=== PATIENT | male | born 1975 | race Caucasian/White ===

== ENCOUNTER 2018-05-26 15:40 | Inpatient (IN) | payer OTHER ==
[~2018-05-26] VITALS: Ht 175.3 cm; Wt 108.2 kg
[2018-05-26 15:45] VITALS: Ht 175.3 cm; Wt 108.2 kg
[2018-05-26 16:48] LABS: BASOPHIL % 0.9 % (0-2); RED CELL DISTRIBUTION WIDTH 13.3 % (11.5-14.5)
[2018-05-26 16:53] LABS: PLATELET COUNT 91 x10^3mcL (130-400)
[2018-05-26 17:12] LABS: CALCIUM 8.4 mg/dL (8.5-10.1); CHLORIDE SERUM 91 mmol/L (98-107); CREATININE SERUM 0.8 mg/dL (0.7-1.3); GFR1 > 60 mL/min; GLUCOSE SERUM 356 mg/dL (74-106); POTASSIUM SERUM 3.2 mmol/L (3.5-5.1); SODIUM SERUM 130 mmol/L (136-145)
[2018-05-26 17:17] LABS: ALBUMIN 3.9 g/dL (3.4-5.0); ALKALINE PHOSPHATASE 142 U/L (46-116); BILIRUBIN TOTAL 1.5 mg/dL (0.20-1.00)
[2018-05-26 17:18] LABS: TOTAL PROTEIN, SERUM 8.5 g/dL (6.4-8.2)
[2018-05-26 17:24] LABS: microscopic required? YES; urine erythrocyte 3+ (NEGATIVE)
[2018-05-26 17:37] LABS: ALT/SGPT 160 U/L (16-63); AST/SGOT 227 U/L (15-37)
[2018-05-26 20:04] LABS: AMPHETAMINE QUAL UR NONE DETECTED (See below)
[2018-05-26 20:09] LABS: AMYLASE 30 U/L (25-115); CHOLESTEROL 330 mg/dL (<200); HDL CHOLESTEROL 30 mg/dL (40-60); LIPASE 439 IU/L (73-393); PHOSPHOROUS 3.5 mg/dL (2.5-4.9); TRIGLYCERIDES 1775 mg/dL (<150)
[2018-05-26 20:11] LABS: FREE T4 0.8 ng/dL (0.76-1.46); FREE THYROXINE INDEX 2.4 ug/dL (1.4-4.5); T3 TOTAL 1.01 ng/mL; T4(THYROXINE) 7.1 ug/dL (4.7-13.3)
[2018-05-26 20:27] VITALS: BP 159/91
[2018-05-26 22:16] VITALS: BP 144/83
[2018-05-26 23:35] VITALS: BP 144/93
[2018-05-27 05:41] VITALS: BP 149/92
[2018-05-27 06:01] LABS: BASOPHIL % 0.7 % (0-2); RED CELL DISTRIBUTION WIDTH 13.4 % (11.5-14.5)
[2018-05-27 06:29] LABS: CALCIUM 7.2 mg/dL (8.5-10.1); CARBON DIOXIDE 23.1 mmol/L (21-32); CHLORIDE SERUM 98 mmol/L (98-107); CREATININE SERUM 0.6 mg/dL (0.7-1.3); GFR1 > 60 mL/min; GLUCOSE SERUM 186 mg/dL (74-106); MAGNESIUM 1.8 mg/dL (1.8-2.4); PHOSPHOROUS 3.1 mg/dL (2.5-4.9); POTASSIUM SERUM 3.1 mmol/L (3.5-5.1); SODIUM SERUM 139 mmol/L (136-145)
[2018-05-27 07:09] LABS: PLATELET COUNT 71 x10^3mcL (130-400)
[2018-05-27 09:37] LABS: ALBUMIN 3.5 g/dL (3.4-5.0); BILIRUBIN DIRECT 1.2 mg/dL (0.0-0.2); TOTAL PROTEIN, SERUM 7.5 g/dL (6.4-8.2)
[2018-05-27 11:03] VITALS: BP 161/104
[2018-05-27 14:04] VITALS: BP 160/108
[2018-05-27 17:07] VITALS: BP 136/89
[2018-05-27 21:04] VITALS: BP 123/84
[2018-05-28 05:34] VITALS: BP 142/93
[2018-05-28 06:20] LABS: BASOPHIL % 0.4 % (0-2); RED CELL DISTRIBUTION WIDTH 13.6 % (11.5-14.5)
[2018-05-28 06:41] LABS: PLATELET COUNT 72 x10^3mcL (130-400)
[2018-05-28 06:43] LABS: ALKALINE PHOSPHATASE 122 U/L (46-116); ALT/SGPT 167 U/L (16-63); AST/SGOT 248 U/L (15-37); BILIRUBIN DIRECT 2.34 mg/dL (0.0-0.2); BILIRUBIN TOTAL 3.5 mg/dL (0.20-1.00); CALCIUM 8.7 mg/dL (8.5-10.1); CARBON DIOXIDE 26.5 mmol/L (21-32); CHLORIDE SERUM 96 mmol/L (98-107); CREATININE SERUM 0.7 mg/dL (0.7-1.3); GFR1 > 60 mL/min; GLUCOSE SERUM 257 mg/dL (74-106); PHOSPHOROUS 2.3 mg/dL (2.5-4.9); POTASSIUM SERUM 3.4 mmol/L (3.5-5.1); SODIUM SERUM 130 mmol/L (136-145); TOTAL PROTEIN, SERUM 7.3 g/dL (6.4-8.2)
[2018-05-28 07:07] LABS: ALBUMIN 3.2 g/dL (3.4-5.0)
[2018-05-28 08:51] VITALS: BP 142/96
[2018-05-28 12:43] VITALS: BP 144/94
[2018-05-28 17:52] VITALS: BP 141/87
[2018-05-28 20:50] VITALS: BP 139/100
[2018-05-29 05:48] VITALS: BP 139/99
[2018-05-29 06:26] LABS: CALCIUM 8.7 mg/dL (8.5-10.1); CARBON DIOXIDE 24.9 mmol/L (21-32); CHLORIDE SERUM 103 mmol/L (98-107); CREATININE SERUM 0.6 mg/dL (0.7-1.3); GFR1 > 60 mL/min; GLUCOSE SERUM 201 mg/dL (74-106); MAGNESIUM 1.8 mg/dL (1.8-2.4); PHOSPHOROUS 3.2 mg/dL (2.5-4.9); POTASSIUM SERUM 3.5 mmol/L (3.5-5.1); SODIUM SERUM 141 mmol/L (136-145)
[2018-05-29 06:29] LABS: BASOPHIL % 0.7 % (0-2)
[2018-05-29 06:44] LABS: PLATELET COUNT 84 x10^3mcL (130-400)
[2018-05-29 09:05] VITALS: BP 140/93
[2018-05-29] MEDS ORDERED: METFORMIN HCL1000 MG PO (09:25)
[2018-05-29 12:13] VITALS: BP 140/93
[2018-05-29] MEDS ORDERED: LEVEMIR100 U/M1 SC (13:08)
[2018-05-29] MEDS ORDERED: HUMULIN R100 U/1 M1 SC (13:08)
[2018-05-29] MEDS ORDERED: ADA30 PO (13:09)
[2018-05-29] MEDS ORDERED: BG FS (13:09)
[2018-05-29] MEDS ORDERED: LIPI10 PO (13:54)
[2018-05-29] MEDS ORDERED: NEU100 PO (13:55)
[2018-05-29] MEDS ORDERED: ZES5 PO (13:55)
== END 2018-05-29 16:00 | disposition home or self-care (01) | DRG 52 ==
LOC: ED 15:40 → DU 19:34
PROVIDERS: Emergency Medicine; Internal Medicine
DX: G92 Toxic encephalopathy (principal); N17.0 Acute kidney failure with tubular necrosis; E83.51 Hypocalcemia; E87.1 Hypo-osmolality and hyponatremia; D69.6 Thrombocytopenia, unspecified; E11.65 Type 2 diabetes mellitus with hyperglycemia; E78.5 Hyperlipidemia, unspecified; E03.9 Hypothyroidism, unspecified; R74.0 Nonspecific elevation of levels of transaminase and lactic acid dehydrogenase [LDH]; F32.9 Major depressive disorder, single episode, unspecified; F10.129 Alcohol abuse with intoxication, unspecified; Y90.9 Presence of alcohol in blood, level not specified; I10 Essential (primary) hypertension; E87.6 Hypokalemia; F12.10 Cannabis abuse, uncomplicated; Z68.35 Body mass index [BMI] 35.0-35.9, adult; Y92.018 Other place in single-family (private) house as the place of occurrence of the external cause; Z56.0 Unemployment, unspecified; Z71.41 Alcohol abuse counseling and surveillance of alcoholic
CPT/HCPCS: 82962; 83880; 84439; 87046; 87046-59; G0480; J1815; J2060; J2405; J3411; J3475; J3490; J7030; Q0092

== ENCOUNTER 2018-07-29 22:48 | Emergency (ER) | payer OTHER ==
[~2018-07-29] VITALS: Ht 172.7 cm; Wt 101.6 kg
[~2018-07-29 22:48] MED LIST: ADA30 PO; BG FS; HUMULIN R100 U/1 M1 SC; LEVEMIR100 U/M1 SC; LIPI10 PO; METFORMIN HCL1000 MG PO; NEU100 PO; ZES5 PO
[2018-07-29 22:52] VITALS: BP 131/50; Ht 172.7 cm; Wt 101.6 kg
== END 2018-07-30 01:19 | disposition left against medical advice (07) ==
LOC: ED 22:48
DX: Z53.21 Procedure and treatment not carried out due to patient leaving prior to being seen by health care provider (principal)
CPT/HCPCS: 82962

== ENCOUNTER 2018-07-31 15:44 | Inpatient (IN) | payer OTHER ==
[~2018-07-31] VITALS: Ht 175.3 cm; Wt 108.9 kg
[2018-07-31 15:52] VITALS: Ht 175.3 cm; Wt 108.9 kg
[2018-07-31 16:41] LABS: CALCIUM 8.4 mg/dL (8.5-10.1); CARBON DIOXIDE 26.4 mmol/L (21-32); CHLORIDE SERUM 96 mmol/L (98-107); CREATININE SERUM 0.9 mg/dL (0.7-1.3); GFR1 > 60 mL/min; GLUCOSE SERUM 137 mg/dL (74-106); POTASSIUM SERUM 3.5 mmol/L (3.5-5.1); SODIUM SERUM 137 mmol/L (136-145)
[2018-07-31 16:46] LABS: BASOPHIL % 0.9 % (0-2); RED CELL DISTRIBUTION WIDTH 14.5 % (11.5-14.5)
[2018-07-31 16:50] LABS: PLATELET COUNT 114 x10^3mcL (130-400)
[2018-07-31 16:59] LABS: ALBUMIN 4.5 g/dL (3.4-5.0); ALKALINE PHOSPHATASE 147 U/L (46-116); ALT/SGPT 165 U/L (16-63); AST/SGOT 197 U/L (15-37); BILIRUBIN TOTAL 1.03 mg/dL (0.20-1.00); LIPASE 432 IU/L (73-393)
[2018-07-31 17:02] LABS: CHOLESTEROL 447 mg/dL (<200); CHOLESTEROL/HDL RATIO 5.8; HDL CHOLESTEROL 77 mg/dL (40-60); TOTAL PROTEIN, SERUM 9.7 g/dL (6.4-8.2); TRIGLYCERIDES 408 mg/dL (<150)
[2018-07-31 19:22] VITALS: BP 149/95
[2018-07-31 21:34] VITALS: BP 133/91
[2018-08-01 05:52] VITALS: BP 141/94
[2018-08-01 06:58] LABS: BASOPHIL % 0.9 % (0-2)
[2018-08-01 07:13] LABS: CARBON DIOXIDE 27.8 mmol/L (21-32); CHLORIDE SERUM 98 mmol/L (98-107); CREATININE SERUM 0.8 mg/dL (0.7-1.3); GFR1 > 60 mL/min; GLUCOSE SERUM 90 mg/dL (74-106); POTASSIUM SERUM 3.6 mmol/L (3.5-5.1); SODIUM SERUM 135 mmol/L (136-145)
[2018-08-01 08:06] VITALS: BP 152/108
[2018-08-01 09:01] LABS: PLATELET COUNT 73 x10^3mcL (130-400); RED CELL DISTRIBUTION WIDTH 14.6 % (11.5-14.5)
[2018-08-01 12:53] VITALS: BP 142/63; BP 155/84
[2018-08-01 17:18] VITALS: BP 139/90
[2018-08-01 21:05] VITALS: BP 126/85
[2018-08-02 06:49] VITALS: BP 114/69
[2018-08-02 07:29] LABS: BASOPHIL % 0.4 % (0-2)
[2018-08-02 07:30] LABS: PLATELET COUNT 66 x10^3mcL (130-400); RED CELL DISTRIBUTION WIDTH 14.7 % (11.5-14.5)
[2018-08-02 07:32] LABS: AMYLASE 39 U/L (25-115); CALCIUM 8.9 mg/dL (8.5-10.1); CARBON DIOXIDE 28.3 mmol/L (21-32); CHLORIDE SERUM 96 mmol/L (98-107); CREATININE SERUM 0.8 mg/dL (0.7-1.3); GFR1 > 60 mL/min; GLUCOSE SERUM 86 mg/dL (74-106); LIPASE 457 IU/L (73-393); SODIUM SERUM 136 mmol/L (136-145)
[2018-08-02 10:42] VITALS: BP 124/85
[2018-08-02 14:37] VITALS: BP 132/92
[2018-08-02 17:28] VITALS: BP 97/65
== END 2018-08-02 17:51 | disposition home or self-care (01) | DRG 282 ==
LOC: ED 15:44 → DU 17:28 → MU 17:28 → DU 08-01 03:10
PROVIDERS: Specialist; ADMIT Family Medicine
DX: K85.90 Acute pancreatitis without necrosis or infection, unspecified (principal); G92 Toxic encephalopathy; M62.82 Rhabdomyolysis; E11.65 Type 2 diabetes mellitus with hyperglycemia; E87.1 Hypo-osmolality and hyponatremia; E03.9 Hypothyroidism, unspecified; F41.9 Anxiety disorder, unspecified; R74.0 Nonspecific elevation of levels of transaminase and lactic acid dehydrogenase [LDH]; F10.229 Alcohol dependence with intoxication, unspecified; I10 Essential (primary) hypertension; F17.210 Nicotine dependence, cigarettes, uncomplicated; E78.5 Hyperlipidemia, unspecified; F10.239 Alcohol dependence with withdrawal, unspecified; Y90.2 Blood alcohol level of 40-59 mg/100 ml; Z79.4 Long term (current) use of insulin; Z79.899 Other long term (current) drug therapy; Z56.0 Unemployment, unspecified; Z68.35 Body mass index [BMI] 35.0-35.9, adult; Z71.41 Alcohol abuse counseling and surveillance of alcoholic
CPT/HCPCS: 82962; 83880; G0480; J2060; J2405; J3411; J3475; J3490; J7030; Q0092

== ENCOUNTER 2019-09-20 18:06 | Emergency (ER) | payer OTHER ==
[~2019-09-20] VITALS: Ht 167.6 cm; Wt 104.3 kg
[2019-09-20 18:16] VITALS: Ht 167.6 cm; Wt 104.3 kg
[2019-09-20 20:01] LABS: BASOPHIL % 1.1 % (0-2); PLATELET COUNT 120 x10^3mcL (130-400); RED CELL DISTRIBUTION WIDTH 13.8 % (11.5-14.5)
[2019-09-20 20:10] LABS: CHLORIDE SERUM 102 mmol/L (98-107); CREATININE SERUM 0.9 mg/dL (0.7-1.3); GFR1 > 60 mL/min; GLUCOSE SERUM 145 mg/dL (74-106); POTASSIUM SERUM 3.4 mmol/L (3.5-5.1); SODIUM SERUM 142 mmol/L (136-145)
[2019-09-20 20:16] LABS: ALBUMIN 3.9 g/dL (3.4-5.0); ALKALINE PHOSPHATASE 113 U/L (46-116); ALT/SGPT 97 U/L (16-63); AST/SGOT 134 U/L (15-37); BILIRUBIN TOTAL 0.8 mg/dL (0.20-1.00); LIPASE 416 IU/L (73-393); MAGNESIUM 2.1 mg/dL (1.8-2.4); TOTAL PROTEIN, SERUM 8.1 g/dL (6.4-8.2)
[2019-09-20 20:51] VITALS: BP 120/83
== END 2019-09-20 21:48 | disposition left against medical advice (07) ==
LOC: ED 18:06
PROVIDERS: Emergency Medicine
DX: K85.20 Alcohol induced acute pancreatitis without necrosis or infection (principal); M62.82 Rhabdomyolysis; E03.9 Hypothyroidism, unspecified; S00.31XA Abrasion of nose, initial encounter; X58.XXXA Exposure to other specified factors, initial encounter; Y93.89 Activity, other specified; Y92.89 Other specified places as the place of occurrence of the external cause; Y99.8 Other external cause status
CPT/HCPCS: G0480; J2060; J3490

== ENCOUNTER 2019-09-21 10:26 | Emergency (ER) | payer OTHER ==
[~2019-09-21] VITALS: Ht 172.7 cm; Wt 101.2 kg
[2019-09-21 10:34] VITALS: Ht 172.7 cm; Wt 101.2 kg
[2019-09-21 11:20] LABS: BASOPHIL % 0.7 % (0-2); RED CELL DISTRIBUTION WIDTH 14.2 % (11.5-14.5)
[2019-09-21 11:22] LABS: PLATELET COUNT 117 x10^3mcL (130-400)
[2019-09-21 11:35] LABS: CALCIUM 8.6 mg/dL (8.5-10.1); CARBON DIOXIDE 26.3 mmol/L (21-32); CHLORIDE SERUM 101 mmol/L (98-107); CREATININE SERUM 0.9 mg/dL (0.7-1.3); GFR1 > 60 mL/min; GLUCOSE SERUM 159 mg/dL (74-106); POTASSIUM SERUM 3.4 mmol/L (3.5-5.1); SODIUM SERUM 141 mmol/L (136-145)
[2019-09-21 11:41] LABS: ALBUMIN 4.2 g/dL (3.4-5.0); ALKALINE PHOSPHATASE 125 U/L (46-116); ALT/SGPT 103 U/L (16-63); AST/SGOT 172 U/L (15-37); BILIRUBIN TOTAL 0.87 mg/dL (0.20-1.00)
[2019-09-21 11:43] LABS: TOTAL PROTEIN, SERUM 8.5 g/dL (6.4-8.2)
[2019-09-21 14:21] LABS: microscopic required? YES; urine erythrocyte 2+ (NEGATIVE)
[2019-09-21 14:36] LABS: AMPHETAMINE QUAL UR NONE DETECTED (See below)
[2019-09-21 19:07] VITALS: BP 135/76
== END 2019-09-21 19:07 | disposition home or self-care (01) ==
LOC: ED 10:26
PROVIDERS: Emergency Medicine
DX: F10.129 Alcohol abuse with intoxication, unspecified (principal); E11.9 Type 2 diabetes mellitus without complications
CPT/HCPCS: G0480; J2060; J7030; Q0092

== ENCOUNTER 2019-09-22 08:30 | Inpatient (IN) | payer OTHER ==
[~2019-09-22] VITALS: Ht 175.3 cm; Wt 104.0 kg
[2019-09-22 10:48] LABS: CALCIUM 8.5 mg/dL (8.5-10.1); CARBON DIOXIDE 23.6 mmol/L (21-32); CHLORIDE SERUM 94 mmol/L (98-107); CREATININE SERUM 0.7 mg/dL (0.7-1.3); GFR1 > 60 mL/min; GLUCOSE SERUM 108 mg/dL (74-106); POTASSIUM SERUM 3.7 mmol/L (3.5-5.1); SODIUM SERUM 134 mmol/L (136-145)
[2019-09-22 10:55] LABS: ALBUMIN 4.1 g/dL (3.4-5.0); ALKALINE PHOSPHATASE 121 U/L (46-116); ALT/SGPT 117 U/L (16-63); AST/SGOT 224 U/L (15-37); BILIRUBIN TOTAL 1.6 mg/dL (0.20-1.00)
[2019-09-22 10:56] LABS: TOTAL PROTEIN, SERUM 8.3 g/dL (6.4-8.2)
[2019-09-22 10:59] LABS: BASOPHIL % 0.5 % (0-2); RED CELL DISTRIBUTION WIDTH 14.2 % (11.5-14.5)
[2019-09-22 11:18] LABS: PLATELET COUNT 95 x10^3mcL (130-400)
[2019-09-22 13:08] LABS: MAGNESIUM 1.9 mg/dL (1.8-2.4); PHOSPHOROUS 3.2 mg/dL (2.5-4.9)
[2019-09-22 13:10] LABS: T3 TOTAL 1.01 ng/mL
[2019-09-22 13:11] LABS: CHOLESTEROL/HDL RATIO 3.7
[2019-09-22 13:14] LABS: AMPHETAMINE QUAL UR NONE DETECTED (See below)
[2019-09-22 13:19] LABS: FREE T4 0.81 ng/dL (0.76-1.46); T4(THYROXINE) 6.5 ug/dL (4.7-13.3)
[2019-09-22 13:23] LABS: microscopic required? YES; urine erythrocyte TRACE (NEGATIVE)
[2019-09-22 13:52] VITALS: BP 144/62
[2019-09-22 13:55] VITALS: Ht 175.3 cm; Wt 104.0 kg
[2019-09-22 16:50] VITALS: BP 138/93
[2019-09-22 20:25] VITALS: BP 141/90
[2019-09-23 05:34] VITALS: BP 123/78
[2019-09-23 06:06] LABS: BASOPHIL % 0.6 % (0-2); RED CELL DISTRIBUTION WIDTH 14.1 % (11.5-14.5)
[2019-09-23 06:09] LABS: PLATELET COUNT 91 x10^3mcL (130-400)
[2019-09-23 06:52] LABS: CALCIUM 8.4 mg/dL (8.5-10.1); CHLORIDE SERUM 94 mmol/L (98-107); CREATININE SERUM 0.7 mg/dL (0.7-1.3); GFR1 > 60 mL/min; GLUCOSE SERUM 118 mg/dL (74-106); MAGNESIUM 2.1 mg/dL (1.8-2.4); PHOSPHOROUS 3.1 mg/dL (2.5-4.9); POTASSIUM SERUM 3.3 mmol/L (3.5-5.1); SODIUM SERUM 133 mmol/L (136-145)
[2019-09-23 07:37] VITALS: BP 135/89
[2019-09-23 12:37] VITALS: BP 120/70
[2019-09-23 16:46] VITALS: BP 121/73
[2019-09-23 20:05] VITALS: BP 100/62
[2019-09-24 05:33] VITALS: BP 118/71
[2019-09-24 06:50] LABS: BASOPHIL % 0.6 % (0-2); RED CELL DISTRIBUTION WIDTH 14.4 % (11.5-14.5)
[2019-09-24 06:56] LABS: PLATELET COUNT 85 x10^3mcL (130-400)
[2019-09-24 07:23] LABS: CALCIUM 8.6 mg/dL (8.5-10.1); CARBON DIOXIDE 28.5 mmol/L (21-32); CHLORIDE SERUM 101 mmol/L (98-107); CREATININE SERUM 0.8 mg/dL (0.7-1.3); GFR1 > 60 mL/min; GLUCOSE SERUM 114 mg/dL (74-106); MAGNESIUM 2.2 mg/dL (1.8-2.4); PHOSPHOROUS 3.5 mg/dL (2.5-4.9); POTASSIUM SERUM 3.5 mmol/L (3.5-5.1); SODIUM SERUM 139 mmol/L (136-145)
[2019-09-24 07:28] VITALS: BP 134/87
[2019-09-24 07:53] LABS: ALBUMIN 3.5 g/dL (3.4-5.0); ALKALINE PHOSPHATASE 110 U/L (46-116); ALT/SGPT 93 U/L (16-63); AST/SGOT 117 U/L (15-37); BILIRUBIN DIRECT 0.44 mg/dL (0.0-0.2); BILIRUBIN TOTAL 1.4 mg/dL (0.20-1.00); TOTAL PROTEIN, SERUM 7.5 g/dL (6.4-8.2)
[2019-09-24] MEDS ORDERED: FOL1 PO (08:16)
[2019-09-24] MEDS ORDERED: THI100 PO (08:16)
[2019-09-24] MEDS ORDERED: THERA-M CAPLET1 EACH PO (08:16)
[2019-09-24 11:37] VITALS: BP 139/91
[2019-09-24 12:26] VITALS: BP 139/91
== END 2019-09-24 12:56 | disposition home or self-care (01) | DRG 422 ==
LOC: ED 08:30 → DU 12:04
PROVIDERS: Emergency Medicine; ADMIT Internal Medicine
DX: E86.0 Dehydration (principal); D69.6 Thrombocytopenia, unspecified; E78.5 Hyperlipidemia, unspecified; E03.9 Hypothyroidism, unspecified; I10 Essential (primary) hypertension; F17.210 Nicotine dependence, cigarettes, uncomplicated; R74.0 Nonspecific elevation of levels of transaminase and lactic acid dehydrogenase [LDH]; E11.65 Type 2 diabetes mellitus with hyperglycemia; E78.00 Pure hypercholesterolemia, unspecified; G47.00 Insomnia, unspecified; F10.239 Alcohol dependence with withdrawal, unspecified; F12.90 Cannabis use, unspecified, uncomplicated; F10.229 Alcohol dependence with intoxication, unspecified; W01.0XXA Fall on same level from slipping, tripping and stumbling without subsequent striking against object, initial encounter; Y93.01 Activity, walking, marching and hiking; Y90.0 Blood alcohol level of less than 20 mg/100 ml; Z79.899 Other long term (current) drug therapy; Y92.89 Other specified places as the place of occurrence of the external cause; Y99.8 Other external cause status; Z79.4 Long term (current) use of insulin; Z71.41 Alcohol abuse counseling and surveillance of alcoholic
CPT/HCPCS: 82962; 83880; 84439; 97116-GP; 97530-GP; C9113; G0378; G0480; J2060; J7030; Q0092

== ENCOUNTER 2019-11-17 08:37 | Emergency (ER) | payer OTHER ==
[~2019-11-17] VITALS: Ht 175.3 cm; Wt 110.2 kg
[~2019-11-17 08:37] MED LIST changes: +FOL1 PO; +THERA-M CAPLET1 EACH PO; +THI100 PO
[2019-11-17 08:43] VITALS: Ht 175.3 cm; Wt 110.2 kg
[2019-11-17 10:50] VITALS: BP 153/96
== END 2019-11-17 10:55 | disposition home or self-care (01) ==
LOC: ED 08:37
DX: M75.32 Calcific tendinitis of left shoulder (principal); E11.9 Type 2 diabetes mellitus without complications; E03.9 Hypothyroidism, unspecified
CPT/HCPCS: Q0092

== ENCOUNTER 2019-12-20 13:23 | Emergency (ER) | payer OTHER ==
[~2019-12-20] VITALS: Ht 175.3 cm; Wt 104.3 kg
[2019-12-20 13:39] VITALS: Ht 175.3 cm; Wt 104.3 kg
[2019-12-20 14:34] LABS: BASOPHIL % 0.6 % (0-2); PLATELET COUNT 131 x10^3mcL (130-400); RED CELL DISTRIBUTION WIDTH 13.1 % (11.5-14.5)
[2019-12-20 15:45] LABS: CALCIUM 8.1 mg/dL (8.5-10.1); CHLORIDE SERUM 100 mmol/L (98-107); CREATININE SERUM 0.9 mg/dL (0.7-1.3); GFR1 > 60 mL/min; GLUCOSE SERUM 160 mg/dL (74-106); POTASSIUM SERUM 3.6 mmol/L (3.5-5.1); SODIUM SERUM 139 mmol/L (136-145)
[2019-12-20 15:53] LABS: ALKALINE PHOSPHATASE 85 U/L (46-116); ALT/SGPT 84 U/L (16-63); AST/SGOT 85 U/L (15-37); BILIRUBIN TOTAL 0.7 mg/dL (0.20-1.00); MAGNESIUM 2.1 mg/dL (1.8-2.4)
[2019-12-20 17:08] VITALS: BP 154/102
== END 2019-12-20 17:08 | disposition home or self-care (01) ==
LOC: ED 13:23
PROVIDERS: Emergency Medicine
DX: F10.229 Alcohol dependence with intoxication, unspecified (principal); G62.9 Polyneuropathy, unspecified; R11.10 Vomiting, unspecified; E03.9 Hypothyroidism, unspecified; Y90.8 Blood alcohol level of 240 mg/100 ml or more
CPT/HCPCS: G0480; J2405; J7030; Q0092

== ENCOUNTER 2020-03-23 20:20 | Inpatient (IN) | payer OTHER ==
[~2020-03-23] VITALS: Ht 175.3 cm; Wt 104.8 kg
[2020-03-23 20:22] VITALS: Ht 175.3 cm; Wt 104.8 kg
--- NOTE | 2020-03-23 20:30 | NUR ---
PT [place] [facility] [place] 2 [place] HX BINGE DRINKING NOW PT IS ANXIOUS AND AFRAID BECAUSE "MY ARM GOES NUMB AND I'M HALLUCINATING" WHEN ASKED TO CLARIFY WHAT HE IS HALUCINATING PT STATES, "OH I JUST SEE FLASHES AND FLASHES. PT REPORTS PREV HX OF DETOX BUT STATES, "I FELL OFF THE WAGON." PT ARRIVES ALERT, VISIBLE TREMORS AND HIGHLY ANXIOUS. PT PLACED ON MONITOR
[2020-03-23 21:39] LABS: UA SPECIFIC GRAVITY <=1.005 (1.005-1.035); microscopic required? YES; urine erythrocyte 1+ (NEGATIVE)
[2020-03-23 21:48] LABS: BASOPHIL % 1.6 % (0-2); RED CELL DISTRIBUTION WIDTH 14.5 % (11.5-14.5)
--- NOTE | 2020-03-23 21:51 | NUR ---
MULTIPLE ORDERS REC'D AND CARRIED OUT. RADIOLOGY COMPLETED PORTABLE XRAY.
[2020-03-23 21:54] LABS: PLATELET COUNT 65 x10^3mcL (130-400)
[2020-03-23 21:55] LABS: CALCIUM 8.7 mg/dL (8.5-10.1); CARBON DIOXIDE 23.6 mmol/L (21-32); CHLORIDE SERUM 91 mmol/L (98-107); GFR1 > 60 mL/min; GLUCOSE SERUM 154 mg/dL (74-106); POTASSIUM SERUM 3.3 mmol/L (3.5-5.1); SODIUM SERUM 132 mmol/L (136-145)
[2020-03-23 22:00] LABS: AMPHETAMINE QUAL UR NONE DETECTED (See below)
[2020-03-23 22:09] LABS: ALBUMIN 4.1 g/dL (3.4-5.0); ALKALINE PHOSPHATASE 118 U/L (46-116); ALT/SGPT 170 U/L (16-63); AST/SGOT 315 U/L (15-37); BILIRUBIN TOTAL 1.44 mg/dL (0.20-1.00); LIPASE 653 IU/L (73-393); MAGNESIUM 1.9 mg/dL (1.8-2.4); T4(THYROXINE) 7.7 ug/dL (4.7-13.3); TOTAL PROTEIN, SERUM 7.9 g/dL (6.4-8.2)
[2020-03-23 22:10] LABS: CHOLESTEROL 394 mg/dL (<200); HDL CHOLESTEROL 102 mg/dL (40-60)
--- NOTE | 2020-03-23 22:41 | NUR ---
PT SLEEPING ON LEFT LATERAL SIDE NO ACUTE DISTRESS. PT EASILY AROUSED MADE REMINDED HE NEEDED TO PROVIDE A URINE SPEC
--- NOTE | 2020-03-24 00:17 | NUR ---
ATTEMPTED TO GIVE REPORT STAFF STATED "THE NURSE CANNOT TAKE IT AT THIS TIME." INFORMED WE CAN SEND THE PT UP AND SHE CAN CALL FOR REPORT WHEN SHE IS READY.
--- NOTE | 2020-03-24 00:22 | NUR ---
CALL RECEIVED FROM CAR ALVARADO ACCEPTING FLOOR RN. REPORT GIVEN AT THIS TIME.
[2020-03-24 01:45] VITALS: BP 137/77
--- NOTE | 2020-03-24 02:13 | NUR ---
RECEIVED PATIENT FROM ED VIA GURNEY, ACCOMPANY BY NURSE. PATIENT IS AAOX4, DENIES DURHAM/DIZZINESS. BREATHING EVEN AND UNLABORED ON RA WITH 95% O2SAT. DENIES COUGH. AFEBRILE. PATIENT ABD SOFT/ROUND, ACTIVE BOWEL SOUNDS. DENIES ABD PAIN. REPORTS HAVING DIARRHEA DURING THE DAY X1 DAY. PATIENT IV LAC PATENT, FLUSHED WELL. NO EDEMA NOTED. PALPABLE PULSES. PATIENT AMBULATORY. PATIENT DENIES HALLUCINATIONS AT THIS TIME. PATIENT IS RESTLESS, WITH BLE TREMORS. DR WALKER MADE AWARE, AWAITING NEW ORDER. PATIENT ON SEIZURE PRECAUTIONS. ALL PRECAUTIONS IN PLACE. WILL MONITOR. PATIENT REFUSED SKIN ASSESSMENT AT THIS TIME.
[2020-03-24 02:59] LABS: PHOSPHOROUS 2.8 mg/dL (2.5-4.9)
[2020-03-24 03:03] LABS: CHOLESTEROL/HDL RATIO 3.2
--- NOTE | 2020-03-24 04:52 | NUR ---
PATIENT RESTING, EASILY AROUSABLE. PATIENT ON RA WITH NO RESP DISTRESS. IV PATENT, INFUSING WELL WITH NO SIGNS OF INFILTRATION. PATIENT IS CALM AT THIS TIME. MEDICATED PER EMAR. CALL BUTTON WITHIN REACH. SAFETY/SEIZURE PRECAUTIONS IN PLACE. WILL CONTINUE TO MONITOR.
[2020-03-24 05:25] VITALS: BP 116/70
--- NOTE | 2020-03-24 05:36 | NUR ---
US TECH AT BEDSIDE.
[2020-03-24 07:13] LABS: BASOPHIL % 1.3 % (0-2); RED CELL DISTRIBUTION WIDTH 13.9 % (11.5-14.5)
--- NOTE | 2020-03-24 07:15 | NUR ---
RECEIVED PT FROM DIRECTOR OF REVENUE CYCLE MANAGEMENT RN IN BED AWAKE, ALERT, VERBALY RESPONSIVE. CURRENTLY NPO STATUS. ON TELE 30. IV SITE TO LAC WITH NS AT 200CC/HR. DENIES PAIN OR DISCOMFORT AT THIS TIME. NO ACUTE RESPIRATORY DISTRESS. BED IN LOWEST POSITION. SEIZURE PRECAUTIONS IMPLEMENTED. CALL LIGHT WITHIN REACH. WILL CONTINUE TO MONITOR.
[2020-03-24 07:17] LABS: CALCIUM 8.1 mg/dL (8.5-10.1); CARBON DIOXIDE 26.7 mmol/L (21-32); CHLORIDE SERUM 98 mmol/L (98-107); CREATININE SERUM 0.9 mg/dL (0.7-1.3); GFR1 > 60 mL/min; GLUCOSE SERUM 96 mg/dL (74-106); PHOSPHOROUS 3.5 mg/dL (2.5-4.9); POTASSIUM SERUM 3.1 mmol/L (3.5-5.1); SODIUM SERUM 137 mmol/L (136-145)
--- NOTE | 2020-03-24 07:21 | NUR ---
PATIENT IN NO ACUTE DISTRESS. ENDORSED CARE TO TAOIST RN, ALL QUESTIONS ADDRESSED.
[2020-03-24 07:36] LABS: PLATELET COUNT 55 x10^3mcL (130-400)
[2020-03-24 09:17] VITALS: BP 168/108
[2020-03-24 12:15] LABS: ALBUMIN 3.7 g/dL (3.4-5.0); BILIRUBIN DIRECT 1.56 mg/dL (0.0-0.2); BILIRUBIN TOTAL 2.21 mg/dL (0.20-1.00); TOTAL PROTEIN, SERUM 7.5 g/dL (6.4-8.2)
[2020-03-24 13:16] VITALS: BP 152/97
[2020-03-24 18:01] VITALS: BP 165/106
--- NOTE | 2020-03-24 19:20 | NUR ---
PT IN BED AWAKE, ALERT, ABLE TO VERBALIZE NEEDS. IV SITE TO LAC WITH NA KCL 20MEQ AT 150ML/HR. TELE 30 NSR. ON RA, NO ACUTE RESPIRATORY DISTRESS. DENIES PAIN OR DISCOMFORT AT THIS TIME. BED IN LOWEST POSITION. CALL LIGHT WITHIN REACH. WILL ENDORSE CARE TO INCOMING NURSE.
--- NOTE | 2020-03-24 19:37 | NUR ---
RECEIVED SHIFT REPORT FROM DAY RN MACEY. PT AWAKE, ALERT. IN NAD, DENIES ANY NEEDS/CONCERNS AT THIS TIME. SAFETY CHECKS COMPLETE. CALL CALVO WITHIN REACH. UPDATED ON POC. CARE ONGOING.
[2020-03-24 20:15] VITALS: BP 144/100
--- NOTE | 2020-03-25 04:00 | NUR ---
COMPLETED PT ROUNDING. PT LAYING QUIETLY IN BED. NAD NOTED, DENIES ANY CURRENT NEEDS CONCERNS. STATES HE'S GOING BACK TO SLEEP. CALL CALVO WITHIN REACH, SAFETY CHECKS COMPLETED. IVF INFUSING PER MAR. CARE ONGOING.
[2020-03-25 06:10] VITALS: BP 138/94
[2020-03-25 07:00] LABS: BASOPHIL % 1.3 % (0-2)
[2020-03-25 07:02] LABS: CHLORIDE SERUM 98 mmol/L (98-107); CREATININE SERUM 0.9 mg/dL (0.7-1.3); GFR1 > 60 mL/min; GLUCOSE SERUM 126 mg/dL (74-106); MAGNESIUM 2.1 mg/dL (1.8-2.4); PHOSPHOROUS 2.6 mg/dL (2.5-4.9); POTASSIUM SERUM 3.5 mmol/L (3.5-5.1); SODIUM SERUM 136 mmol/L (136-145)
[2020-03-25 07:23] LABS: PLATELET COUNT 67 x10^3mcL (130-400); RED CELL DISTRIBUTION WIDTH 14.8 % (11.5-14.5)
--- NOTE | 2020-03-25 07:30 | NUR ---
RECEIVED REPORT FROM NIGHT RN Pt LYING IN BED A&O X4 NO TREMORS NOTED AT THIS TIME. Pt DENIES ANY N/V. ON RA LUNGS CTA BILAT. NO S/S OF ANY ACUTE DISTRESS SEIZURE PRECAUTIONS IN PLACE. IV ON LAC PATENT AND INTACT. ALL NEEDS ATTENDED TO AT THIS TIME. SAFETY PRECAUTIONS IN PLACE. WILL CONTINUE TO MONITOR.
[2020-03-25 09:43] VITALS: BP 125/74
--- NOTE | 2020-03-25 10:05 | NUR ---
DR TREVIÑO AT BEDSIDE
[2020-03-25 12:28] LABS: ALBUMIN 3.7 g/dL (3.4-5.0); BILIRUBIN DIRECT 1.47 mg/dL (0.0-0.2); BILIRUBIN TOTAL 2.3 mg/dL (0.20-1.00); TOTAL PROTEIN, SERUM 7.4 g/dL (6.4-8.2)
--- NOTE | 2020-03-25 13:01 | NUR ---
Pt TOLERATING CLEAR LIQUID DIET WELL DENIES ANY N/V/D
[2020-03-25 14:03] VITALS: BP 152/93
--- NOTE | 2020-03-25 17:34 | NUR ---
Pt REPORTED FEELING BETTER LESS DIZZY. K+ 20MEQ INFUSING WELL. Pt CALM AND COOPERATIVE DENIES ANY PAIN OR SOB. SLIGHT TREMORE NOTED IN BUE. Pt AMBULATED TO BATHROOM STEADY GAIT NOTED
[2020-03-25 18:22] VITALS: BP 117/81
--- NOTE | 2020-03-25 18:49 | NUR ---
Pt LYING IN BED LIGHT TREMORS ON BUE Pt DENIES DIZZINESS OR HEADACHE. NO ACUTE DISTRESS NOTED. Pt DENIES ANY PAIN. ALL NEEDS ADDRESSED. WILL ENDORSE CARE TO NIGHT RN
--- NOTE | 2020-03-25 20:34 | NUR ---
PT RECEIVED LYING IN BED SUPINE WATCHING TV RESTING COMFORTABLY. NO SOB. LBM 03/25, LOOSE, DENIES N/V. NO TREMORS NOTED, HOWEVER PT REPORTS OCCASIONAL TREMORS AND NUMBNESS TO BUE. SKIN INTACT. IV LAC 20G, PATENT, RUNNING NS+20MEQ KCl@150ML/HR, NO COMPLICATIONS TO SITE. PT EDUCATED ON USE OF CALL LIGHT AND TO USE FOR ASSIST. BED IN LOWEST POSITION, SIDE RAILS X2, CALL LIGHT WITHIN REACH.
[2020-03-25 21:05] VITALS: BP 118/69
--- NOTE | 2020-03-26 00:07 | NUR ---
PT LYING IN BED ON L SIDE SLEEPING. NON-VERBAL PAIN INDICATORS ABSENT. NO SOB NOTED. NS+20MEQKCL RUNNING @150ML/HR, NO COMPLICATIOSN TO SITE. BED IN LOWEST POSITION, SIDE RAILS X 2, CALL LIGHT WITHIN REACH.
--- NOTE | 2020-03-26 03:35 | NUR ---
PT LYING BED SUPINE. REPORTS DIARRHEA, BMx3, DENIES N/V. PT ALSO DENIES TREMORS. PT ABLE TO SAFELY AMBULATE TO RESTROOM. IV LAC PATENT, NO COMPLICATIONS TO SITE, RUNNING NS+20mEq KCL @150ML/HR. BED IN LOWEST POSITION, SIDE RAILS X2, CALL LIGHT WITHIN REACH.
[2020-03-26 05:04] VITALS: BP 116/86
--- NOTE | 2020-03-26 05:52 | NUR ---
PT LYING IN BED WATCHING TV IN SUPINE POSITION. A/O, CALM AND COOPERATIVE. AMBUALTORY WITH STEADY GAIT, NO FALLS OR INJURIES SUSTAINED DURING SHIFT. NO SOB NOTED OR REPORTED, RA. PT C/O DIARRHEA, X 3 BM. ADEQUATE UOP. NO TREMORS NOTED, HOWEVER PT REPORTS INTERMITTENT TREMORS ADN CONTINUED NUMBNESS TO BUE. IV LAC, RYUNNING NS+20mEqKCL @150ML/HR, NO COMLICATIONS TO SITE. ALL NEEDS MET. BED IN LOWEST POSITION, SIDE RAILS X 2, [facility], SAFE SIDE EXIT.
[2020-03-26 07:00] LABS: RED CELL DISTRIBUTION WIDTH 14.4 % (11.5-14.5)
[2020-03-26 07:13] LABS: PLATELET COUNT 68 x10^3mcL (130-400)
--- NOTE | 2020-03-26 07:35 | NUR ---
RECEIVED PT FROM NIGHT RN. PT IS AAOX4. PT ON TELE #30 PT DENIES CHEST PAIN. PT ON RA W/ NO SOB OR DISTRESS. PT DENIES PAIN AT THIS TIME. IV TO LAC W/ NS 20 MEQ KCL RUNNING AT 150 ML/HR. IV CDI. ALL COMFORT AND SAFETY MEASURES IN PLACE. BED IN LOW POSITION, CALL LIGHT WITH IN REACH. 2 SIDE RAILS UP. ALL QUESTIONS AND CONCERNS ADDRESSED. ALL NEEDS MET AT THIS TIME. WILL CONTINUE TO MONITOR PT.
[2020-03-26 07:43] LABS: ALKALINE PHOSPHATASE 97 U/L (46-116); ALT/SGPT 143 U/L (16-63); AST/SGOT 180 U/L (15-37); CALCIUM 8.7 mg/dL (8.5-10.1); CARBON DIOXIDE 25.1 mmol/L (21-32); CHLORIDE SERUM 100 mmol/L (98-107); CREATININE SERUM 0.8 mg/dL (0.7-1.3); GFR1 > 60 mL/min; GLUCOSE SERUM 123 mg/dL (74-106); LIPASE 518 IU/L (73-393); MAGNESIUM 1.6 mg/dL (1.8-2.4); POTASSIUM SERUM 3.6 mmol/L (3.5-5.1); SODIUM SERUM 137 mmol/L (136-145); TOTAL PROTEIN, SERUM 6.8 g/dL (6.4-8.2)
[2020-03-26 07:53] LABS: ALBUMIN 3.2 g/dL (3.4-5.0)
[2020-03-26 08:23] VITALS: BP 142/98
--- NOTE | 2020-03-26 13:00 | NUR ---
IN TO SEE PT. PT STATED HE TOLERATED LUNCH WELL W/ OUT ANY GI DISTRESS. DENIES N/V D/C. ALL QUESTIONS AND CONCERNS ADDRESSED. ALL NEEDS MET AT THIS TIME. WILL CONTINUE TO MONITOR PT.
[2020-03-26 13:15] VITALS: BP 134/92
[2020-03-26 16:35] VITALS: BP 123/80
[2020-03-26 17:41] VITALS: BP 134/92
--- NOTE | 2020-03-26 18:00 | NUR ---
IN TO SEE PT. PT STATED HE TOLERATED DINNER WELL. DENIED N/V D/C. NO GI UPSET. ALL QUESTIONS AND CONCERNS ADDRESSED. ALL NEEDS MET AT THIS TIME.
--- NOTE | 2020-03-26 18:55 | NUR ---
D/C INSTRUCTIONS GIVEN TO PT. PT VERBALIZED UNDERSTANDING. TELE D/C. IV CATHETER D/C. CATHETER INTACT, DRESSING APPLIED. ID BANDS REMOVED. ALL QUESTIONS AND CONCERNS ADDRESSED. ALL NEEDS MET AT THIS TIME. WILL CONTINUE TO MONITOR PT.
--- NOTE | 2020-03-26 19:17 | NUR ---
REPORT GIVEN TO RAUL ALVARADO. PT REMAINED STABLE THROUGHOUT MY SHIFT. ALL QUESTIONS AND CONCERNS ADDRESSED. ALL NEEDS MET, ALL CARES ENDORSED.
--- NOTE | 2020-03-26 19:27 | NUR ---
DISCHARGE HOME IN STABLE CONDITION ACCOMPANIED BY MANAGER NON PROFIT VIA WHEELCHAIR, FAMILY MEMBERS TO PICK HIM UP WAITING IN HOSPITAL LOBBY.
== END 2020-03-26 19:30 | disposition home or self-care (01) | DRG 52 ==
LOC: ED 20:20 → DU 23:30
PROVIDERS: Emergency Medicine; ADMIT Internal Medicine; ATTEND Internal Medicine
DX: G92 Toxic encephalopathy (principal); K85.20 Alcohol induced acute pancreatitis without necrosis or infection; D69.6 Thrombocytopenia, unspecified; E87.1 Hypo-osmolality and hyponatremia; F10.230 Alcohol dependence with withdrawal, uncomplicated; E78.5 Hyperlipidemia, unspecified; E87.6 Hypokalemia; E03.9 Hypothyroidism, unspecified; F12.10 Cannabis abuse, uncomplicated; E66.9 Obesity, unspecified; Z68.33 Body mass index [BMI] 33.0-33.9, adult; Z79.84 Long term (current) use of oral hypoglycemic drugs; Z79.4 Long term (current) use of insulin; Z79.899 Other long term (current) drug therapy; Z79.891 Long term (current) use of opiate analgesic
CPT/HCPCS: 83880; G0378; G0480; J2060; J3411; J3475; J3480; J3490; J7030; J7042; Q0092

== ENCOUNTER 2020-05-09 02:48 | Emergency (ER) | payer OTHER ==
[~2020-05-09] VITALS: Ht 175.3 cm; Wt 101.3 kg
[2020-05-09 02:58] VITALS: Ht 175.3 cm; Wt 101.3 kg
[2020-05-09 03:41] LABS: RED CELL DISTRIBUTION WIDTH 13.4 % (11.5-14.5)
[2020-05-09 03:43] LABS: PLATELET COUNT 129 x10^3mcL (130-400)
[2020-05-09 03:48] LABS: UA SPECIFIC GRAVITY >=1.030 (1.005-1.035); microscopic required? YES; urine erythrocyte 1+ (NEGATIVE)
[2020-05-09 03:57] LABS: AMPHETAMINE QUAL UR NONE DETECTED (See below)
[2020-05-09 04:00] LABS: CARBON DIOXIDE 22.8 mmol/L (21-32); CHLORIDE SERUM 99 mmol/L (98-107); GFR1 > 60 mL/min; GLUCOSE SERUM 122 mg/dL (74-106); POTASSIUM SERUM 3.5 mmol/L (3.5-5.1); SODIUM SERUM 137 mmol/L (136-145)
[2020-05-09 04:06] LABS: ALBUMIN 4.2 g/dL (3.4-5.0); ALKALINE PHOSPHATASE 88 U/L (46-116); ALT/SGPT 88 U/L (16-63); AST/SGOT 92 U/L (15-37); MAGNESIUM 1.8 mg/dL (1.8-2.4); TOTAL PROTEIN, SERUM 7.7 g/dL (6.4-8.2)
[2020-05-09 05:49] VITALS: BP 114/73
== END 2020-05-09 05:49 | disposition home or self-care (01) ==
LOC: ED 02:48
PROVIDERS: Emergency Medicine
DX: F10.139 Alcohol abuse with withdrawal, unspecified (principal); E03.9 Hypothyroidism, unspecified
CPT/HCPCS: G0480; J2060; J7030